=== PATIENT | male | born 1965 | race Caucasian/White ===

== ENCOUNTER 2024-04-03 10:43 | Emergency (ER) | payer OTHER ==
[2024-04-03] MEDS ORDERED: ASPIRIN 81 MG CHEWABLE TABLET ONE (10:54)
[2024-04-03] MEDS ORDERED: dilTIAZem HCL 25 MG/5 ML VIAL IV ONE ×2 (10:54→11:13)
[2024-04-03 10:56] LABS: Absolute Eosinophils 0.1 K/uL (0-0.5); Absolute Lymphocytes (CBC) 1.8 K/uL (0.7-4.9); Absolute Monocytes 0.6 K/uL (0.1-1.3); Absolute Neutrophil 3.9 K/uL (1.8-8.0); Basophils % 0.7 % (0-1.3); Hemoglobin 17.4 g/dL (13.6-17.9); Lymphocytes % 27.7 % (15.3-44.8); MCH 31.7 pg (27.0-35.0); MCHC 33.5 g/dL (32.0-36.0); MCV 94.7 fL (80-100); MPV 9.8 fL (7.6-11.3); Monocytes % 9.2 % (3.3-12.3); Neutrophils % 61.4 % (41.7-73.7); Platelets 187 thou/uL (152-406); RBC Red Blood Cell Count 5.49 M/uL (4.33-5.43); Red Cell Distribution Width 14.9 % (12.1-15.2)
[2024-04-03 10:59] LABS: PT Prothrombin Time 15.5 SECONDS (9.4-12.5); Protime INR 1.4
[2024-04-03 11:14] LABS: Albumin 4.1 g/dL (3.4-5.0); Albumin/Globulin Ratio 1.2 (1.1-1.8); Anion Gap 8.4 mEq/L (5.0-15.0); Bilirubin Direct 0.4 mg/dL (0-0.2); Bilirubin Indirect, Calculated 0.7 mg/dL (0.2-0.8); Bilirubin Total 1.1 mg/dL (0.2-1.0); Globulin 3.5 g/dL (2.3-3.5); Potassium 4.4 mEq/L (3.5-5.1); Protein, Total 7.6 g/dL (6.4-8.2); Troponin High Sensitivity 20.8 pg/mL (<58.9)
--- NOTE | 2024-04-03 11:38 | RAD REPORT ---
EXAMINATION: ONE VIEW CHEST XR CLINICAL INDICATION: Male, 59 years old.,DYSPNEA TECHNIQUE: Frontal chest projection is submitted. Examination is limited by patient positioning and t echnique. COMPARISON: No prior exam. FINDINGS: The lungs are well inflated and clear. No pneumothorax or sizable effusion. The heart is normal in s ize. Mediastinal contours are unremarkable. IMPRESSION: No acute intrathoracic abnormalities.
--- NOTE | 2024-04-03 11:56 | EDPHYS ---
Physician Documentation [facility] Name: Hector Tsai Age: 59 yrs Sex: Male : 1965 Arrival Date: 04/03/2024 Time: 10:43 Bed 2 Private MD: ED Physician Eladio Fontaine HPI: 04/03 10:49 This 59 yrs old Male presents to ER via Unassigned with complaints of ec2 tachycardia. 10:49 Patient arrives today after being seen in primary care clinic and told he was in an ec2 abnormal heart rhythm found to be tachycardic. Patient reports some trace lower extremity edema which has been ongoing for several months, some chronic shortness of breath ongoing for several months. No chest pain. Reports no history of known A-fib, no blood thinners, no significant medical problems and no daily medications.. Historical: - Allergies: 10:51 No Known Allergies; ss - Home Meds: 10:51 None [Active]; ss - PMHx: 10:51 None; ss - Immunization history:: Client reports receiving the 2nd dose of the Covid vaccine. - Infectious Disease History:: Denies. - Social history:: Smoking status: Patient denies any tobacco usage or history of. ROS: 10:49 Constitutional: as per hpi ec2 Exam: 10:49 Constitutional: GEN: NAD Head: atraumatic Eyes: EOMI Ears: External ears are ec2 normal. CV: Tachycardia, regular rhythm LUNGS: no respiratory distress ABD: non-distended SKIN: no evidence of rashes MSK: no evidence of trauma Vital Signs: 10:50 BP 144 / 107; Pulse 154; Resp 20; Pulse Ox 98% on R/A; Pain 0/10; ss 11:05 BP 108 / 86; Pulse 122; Resp 16; Pulse Ox 97% on R/A; ss 11:05 Temp 97.6(TE); ss 11:07 Weight 104.78 kg; Height 5 ft. 10 in. ; ss 11:18 BP 103 / 81; Pulse 112; ss 11:46 BP 113 / 82; Pulse 116; ss 12:02 BP 97 / 78; Pulse 116; Resp 16; Pulse Ox 95% on R/A; Pain 0/10; ss 12:05 BP 89 / 75; Resp 12; Pulse Ox 94% on R/A; ss 12:10 BP 66 / 56; Pulse 57; Resp 12; Pulse Ox 94% on R/A; Pain 4/10; ss 12:15 BP 61 / 51; Pulse 69; Resp 14; Pulse Ox 98% ; ss 12:18 BP 74 / 62; Pulse 46; Resp 16; Pulse Ox 97% on R/A; Pain 6/10; ss 12:33 BP 78 / 55; Pulse 75; Resp 14; ss 12:38 BP 80 / 68; Pulse 80; Resp 16; Pulse Ox 98% on R/A; ss 12:43 BP 96 / 75; Pulse 97; ec2 13:16 BP 116 / 96; Pulse 92; Resp 16; ss 14:30 BP 152 / 117; Pulse 142; Resp 16; Pulse Ox 98% on R/A; ss 14:31 Temp 98.2(O); ss 14:33 Pulse 120; ss 15:16 BP 131 / 98; Pulse 123; Resp 16; Temp 97.7(O); Pulse Ox 97% on R/A; Pain 0/10; ss 16:01 BP 109 / 96; Pulse 114; Resp 16; Pulse Ox 97% on R/A; ss 11:07 Body Mass Index 33.14 (104.78 kg, 177.8 cm) ss 10:50 Pain Scale: Adult ss 12:02 Pain Scale: Adult ss 12:10 Pain Scale: Adult ss 12:18 Pain Scale: Adult ss 15:16 Pain Scale: Adult ss MDM: 10:45 Medical Screening Exam initiated ec2 10:49 Data reviewed: vital signs. ED course: Patient arrives today for evaluation of an ec2 abnormal rhythm. Examination remarkable for cardiopulmonary findings as above. EKG obtained, independently reviewed and interpreted by me, shows atrial fibrillation with rapid ventricular rate of [address] segment elevations, intervals are nonactionable. Will give the patient diltiazem, obtain a cardiac workup. Differential diagnosis includes CHF, electrolyte disturbances, anemia.. 11:54 ED course: Metabolic profile, CBC, LFTs are nonactionable, troponin within normal ec2 ranges, BNP is slightly elevated at 1300. Chest x-ray shows no acute cardiopulmonary process. Patient with some improvement with initial diltiazem at 10 mg however reverted into heart rates in the 100-1 30s. Did give the patient additional 15 mg of diltiazem and starting diltiazem drip. Will admit for further cardiac evaluation. Discussed with hospitalist, pending admission.. 12:27 ED course: Patient with drop in his blood pressure with systolics in the 60s and ec2 subsequent heart rate drop in the 50s to 70s, turned off diltiazem, gave the patient a crystalloid bolus with improvement in his status.. 12:29 ED course: Repeat EKG independently reviewed and interpreted by me, shows atrial ec2 fibrillation with a rate of 78, no acute ST segment elevations, intervals are nonactionable.. 13:50 ED course: CT imaging shows concern for renal cell cancer as well as carcinoid tumor. I ec2 discussed with lab possibly obtaining 5 HIAA testing, states turnaround time would be approximately 1 week. I additionally discussed case with general surgery on-call who recommends transfer for further testing. Will attempt transfer. Patient and family updated regarding plan of care.. 14:50 ED course: I discussed the case with MD Law who declined patient for transfer. I ec2 discussed the case with wood gluer at [facility] who agrees except the patient for transfer. Family updated guarded plan of care.. 04/03 10:46 Order name: Basic Metabolic Panel; Complete Time: 11:53 ec2 04/03 10:46 Order name: CBC with Diff; Complete Time: 11:53 ec2 04/03 10:46 Order name: NT PRO-BNP; Complete Time: 11:53 ec2 04/03 10:46 Order name: PT-INR; Complete Time: 11:53 ec2 04/03 10:46 Order name: Troponin HS; Complete Time: 11:53 ec2 04/03 10:46 Order name: LFT's; Complete Time: 11:53 ec2 04/03 10:46 Order name: XRAY Chest (1 view); Complete Time: 11:53 ec2 04/03 12:42 Order name: Angio Aorta For Dissection; Complete Time: 13:19 EDMS 04/03 10:46 Order name: Cardiac monitoring; Complete Time: 10:51 ec2 04/03 10:46 Order name: EKG - Nurse/Tech; Complete Time: 10:51 ec2 04/03 10:46 Order name: IV Saline Lock; Complete Time: 10:51 ec2 04/03 10:46 Order name: Labs collected and sent; Complete Time: 10:51 ec2 04/03 10:46 Order name: O2 Per Protocol; Complete Time: 10:51 ec2 04/03 10:46 Order name: O2 Sat Monitoring; Complete Time: 10:51 ec2 Administered Medications: 14:25 Discontinued: diltiazem 5 mg/hr IV at calculated rate See Administration Instructions; ss (standard dilution 125 mg diltiazem mixed in 125 mL NS; final concentration 1mg/mL). Recommended max rate 15 mg/hr; Titrate 5 mg/hr as often as every 15 minutes to achieve goal (see titration policy); Goal parameter HR less than 100 bpm 10:00 Drug: Diltiazem IVP 10 mg IVP once; Over 2 minutes Route: IVP; Site: right antecubital; ss 10:10 Follow up: Response: No adverse reaction ss 11:00 Drug: Aspirin PO Chewable Tablet 324 mg PO once; 81 mg tablets x 4 Route: PO; ss 11:55 Drug: Diltiazem IV 5 mg/hr IV at calculated rate See Administration Instructions; ss (standard dilution 125 mg diltiazem mixed in 125 mL NS; final concentration 1mg/mL). Recommended max rate 15 mg/hr; Titrate 5 mg/hr as often as every 15 minutes to achieve goal (see titration policy); Goal parameter HR less than 100 bpm Route: IV; Rate: calculated rate; Site: right antecubital; 12:10 Follow up: IV Status: Order to discontinue infusion; Pt became hypotensive and ss bradycardic. Dr. Fontaine notified and states to DC infusion at this time 11:55 Drug: Diltiazem IVP 15 mg IVP once; Over 2 minutes Route: IVP; Site: right antecubital; ss 12:15 Follow up: Dr. Fontaine notified of patients condition. See nurses notes ss 11:59 Not Given (Other Intervention Used): [id number] mg IVP once; Over 2 minutes ss 12:15 Drug: NS 0.9% IV 1000 ml IV at 1 bolus Per protocol; to be given as a bolus over 60 ss minutes Route: IV; Rate: 1 bolus; Site: right antecubital; 13:00 Follow up: IV Status: Completed infusion; IV Intake: 1000ml 15:01 Drug: amiodarone IVPB 150 mg 100 ml IVPB once over 10 mins; (mix in D5W) Volume: 100 ss ml; Route: IVPB; Infused Over: 10 mins; Site: right antecubital; 15:13 Follow up: IV Status: Completed infusion ss 15:13 Drug: amiodarone IVPB 900 mg, D5W IV 500 ml IVPB at 1 mg/min continuous; for 6 hrs, ss then change to 0.5 mg/min Route: IVPB; Rate: 1 mg/min; Site: right antecubital; 16:22 Follow up: IV Status: Infusion continued upon transfer ss 16:03 Not Given (cancel per Dr. Mcpherson): [id number] mg 100 ml IVPB once over 10 mins; ss (mix in D5W) Disposition Summary: 04/03/24 13:38 Transfer Ordered Notes: Transfer Location: [facility] ec2 Reason: Higher level of care ec2 Condition: Stable(04/03/24 13:38) ec2 Problem: new(04/03/24 13:38) ec2 Symptoms: have improved(04/03/24 13:38) ec2 Accepting Physician: transferring doc(04/03/24 16:24) ss Diagnosis - Afib w/ rvr ec2 - Small bowel mass ec2 - Possible Carcinoid Tumor ec2 Forms: - Medication Reconciliation Form ec2 - SBAR form ec2 Critical care time excluding procedures: 11:54 Critical care time: Bedside Care: 30 minutes, Consultation: 10 minutes, Family ec2 Intervention: 5 minutes. Total time: 45 minutes Signatures: Dispatcher [employer] EDNJ Nancy Swenson RN RN ss Corral, Edwin, MD MD ec2 Corrections: (The following items were deleted from the chart) 10:46 10:46 Chest Single View+RAD.RAD.BRZ ordered. EDMS EDMS 12:42 12:35 Abdomen Pelvis W Con+CT.RAD.BRZ ordered. EDMS EDMS 13:37 11:55 Inpatient Admission ec2 ec2 13:37 11:55 Taylor Brand ec2 ec2 13:37 11:55 Intensive Care Unit ec2 ec2 13:37 11:55 Stable ec2 ec2 13:37 11:55 new ec2 ec2 13:37 11:55 have improved ec2 ec2 13:37 11:55 Standard ec2 ec2 13:37 11:55 ec2 ec2 13:37 11:55 Paroxysmal atrial fibrillation ec2 ec2 13:37 11:55 Atrial Fibrillation with Rapid Ventricular Response ec2 ec2 14:00 13:38 transferring doc ec2 ec2 16:24 14:00 transferring doc ec2 ss
--- NOTE | 2024-04-03 11:56 | ER ---
Nurse's Notes [facility] Name: Hector Tsai Age: 59 yrs Sex: Male : 1965 Arrival Date: 04/03/2024 Time: 10:43 Bed 2 Private MD: Diagnosis: Afib w/ rvr;Possible Carcinoid Tumor Presentation: 04/03 10:50 Chief complaint: Patient states: SOB since january. Had an appointment today and was ss told he may be in AFIB and to come to ER for further evaluation. Coronavirus screen: Client denies travel out of the [place] in the last 14 days. Ebola Screen: Patient denies exposure to infectious person. Patient denies travel to an Ebola-affected area in the 21 days before illness onset. Initial Sepsis Screen: Does the patient meet any 2 criteria? No. Patient's initial sepsis screen is negative. Does the patient have a suspected source of infection? No. Patient's initial sepsis screen is negative. Risk Assessment: Do you want to hurt yourself or someone else? Patient reports no desire to harm self or others. Onset of symptoms is unknown. 10:50 Method Of Arrival: Ambulatory ss 10:50 Acuity: DARIELA 2 ss Historical: - Allergies: 10:51 No Known Allergies; ss - Home Meds: 10:51 None [Active]; ss - PMHx: 10:51 None; ss - Immunization history:: Client reports receiving the 2nd dose of the Covid vaccine. - Infectious Disease History:: Denies. - Social history:: Smoking status: Patient denies any tobacco usage or history of. Screenin:50 Abuse screen: Denies threats or abuse. Denies injuries from another. Nutritional ss screening: No deficits noted. Tuberculosis screening: Never had TB. Assessment: 10:50 General: Appears in no apparent distress. comfortable, Behavior is calm, cooperative, ss Denies fever, feeling ill, fatigue, chills. Pain: Denies pain. Neuro: Level of Consciousness is awake, alert, obeys commands, Oriented to person, place, time, situation, Speech is normal. Respiratory: Reports shortness of breath since "mid January" Airway is patent Respiratory effort is even, unlabored, Respiratory pattern is regular, symmetrical. GI: Patient currently denies nausea, vomiting. : No signs and/or symptoms were reported regarding the genitourinary system. Derm: Skin is pink, warm \\T\\ dry. normal. 11:25 Reassessment: Patient appears in no apparent distress at this time. Patient and/or ss family updated on plan of care and expected duration. Pain level reassessed. Patient is alert, oriented x 3, equal unlabored respirations, skin warm/dry/pink. awaiting for diltiazem drip to arrive from pharmacy. Will continue to watch BP closely. Dr. Fontaine notified of BP 103/81 and states to hold Diltiazem 25 mg IVP now, and to administer 15 mg bolus and start drip at the same time. Family and pt notified of plan of care and verbalizes understanding. Patient denies pain at this time. 12:10 Reassessment: PT states sudden onset of not feeling well/ fatigue. Dr. Fontaine is at bedside to assess pt. Diltiazem drip stopped. Reassessment: and daughter at bedside. Pain: Complains of pain in abdomen. Neuro: Respiratory: Airway is patent Respiratory effort is even, unlabored. EENT: Oral mucosa is dry. Derm: Skin is pale. 12:50 Reassessment: Pt to CT, on monitor, accompanied by TRUDY Elias. jl 13:03 Reassessment: PT back from CT at this time. 14:29 Reassessment: Patient appears in no apparent distress at this time. Patient and/or ss family updated on plan of care and expected duration. Pain level reassessed. PT and family update on plan of care and plan to transfer. Dr. Fontaine notified of elevated pulse and BP and ordered Amiodarone. Order faxed to pharmacy. Awaiting meds to be delivered. Patient denies pain at this time. Patient states feeling better. Patient states symptoms have improved. 15:15 Reassessment: Patient appears in no apparent distress at this time. Patient and/or ss family updated on plan of care and expected duration. Pain level reassessed. Report given to TRUDY Hernández at [facility] ICU Patient denies pain at this time. Vital Signs: 10:50 BP 144 / 107; Pulse 154; Resp 20; Pulse Ox 98% on R/A; Pain 0/10; ss 11:05 BP 108 / 86; Pulse 122; Resp 16; Pulse Ox 97% on R/A; ss 11:05 Temp 97.6(TE); ss 11:07 Weight 104.78 kg; Height 5 ft. 10 in. ; ss 11:18 BP 103 / 81; Pulse 112; ss 11:46 BP 113 / 82; Pulse 116; ss 12:02 BP 97 / 78; Pulse 116; Resp 16; Pulse Ox 95% on R/A; Pain 0/10; ss 12:05 BP 89 / 75; Resp 12; Pulse Ox 94% on R/A; ss 12:10 BP 66 / 56; Pulse 57; Resp 12; Pulse Ox 94% on R/A; Pain 4/10; ss 12:15 BP 61 / 51; Pulse 69; Resp 14; Pulse Ox 98% ; ss 12:18 BP 74 / 62; Pulse 46; Resp 16; Pulse Ox 97% on R/A; Pain 6/10; ss 12:33 BP 78 / 55; Pulse 75; Resp 14; ss 12:38 BP 80 / 68; Pulse 80; Resp 16; Pulse Ox 98% on R/A; ss 12:43 BP 96 / 75; Pulse 97; ec2 13:16 BP 116 / 96; Pulse 92; Resp 16; ss 14:30 BP 152 / 117; Pulse 142; Resp 16; Pulse Ox 98% on R/A; ss 14:31 Temp 98.2(O); ss 14:33 Pulse 120; ss 15:16 BP 131 / 98; Pulse 123; Resp 16; Temp 97.7(O); Pulse Ox 97% on R/A; Pain 0/10; ss 16:01 BP 109 / 96; Pulse 114; Resp 16; Pulse Ox 97% on R/A; ss 11:07 Body Mass Index 33.14 (104.78 kg, 177.8 cm) ss 10:50 Pain Scale: Adult ss 12:02 Pain Scale: Adult ss 12:10 Pain Scale: Adult ss 12:18 Pain Scale: Adult ss 15:16 Pain Scale: Adult ss ED Course: 10:45 Patient arrived in ED. eb 10:45 Eladio Fontaine MD is Attending Physician. ec2 10:50 Triage completed. ss 10:51 Nancy Swenson RN is Primary Nurse. ss 10:51 Arm band placed on right wrist. ss 10:51 Inserted saline lock: 20 gauge in right antecubital area, using aseptic technique. ss Blood collected. Flushed with 10 mL NS. 10:52 Basic Metabolic Panel Sent. ss 10:52 CBC with Diff Sent. ss 10:52 NT PRO-BNP Sent. ss 10:52 PT-INR Sent. ss 10:52 Troponin HS Sent. ss 10:52 LFT's Sent. ss 11:37 XRAY Chest (1 view) In Process Unspecified. EDMS 11:55 Taylor Brand MD is Hospitalizing Provider. ec2 12:10 Patient has correct armband on for positive identification. Bed in low position. Call ss light in reach. Side rails up X2. 13:04 Angio Aorta For Dissection In Process Unspecified. EDMS 13:58 initiated a transfer with Frantz from the [facility] transfer center. eb 14:13 connected the emergency room doctor armor reconnaissance vehicle crewman for [facility] with Dr. Fontaine for patient eb transfer consultation. 14:15 No provider procedures requiring assistance completed. ss 14:22 initiated a transfer with Leah from the [facility] Transfer Center. eb 14:33 connected the medieval english literature professor armor reconnaissance vehicle crewman for [facility] with Dr. Fontaine for patient eb transfer consultation. 14:42 administrative approval give n by Leah Woods/ patient has been accepted to [facility] room 203/ Dr. Shyanne Chan has accepted the patient in transfer/ report to be called to [phone]. 16:23 Patient transferred, IV remains in place. ss Administered Medications: 14:25 Discontinued: diltiazem 5 mg/hr IV at calculated rate See Administration Instructions; ss (standard dilution 125 mg diltiazem mixed in 125 mL NS; final concentration 1mg/mL). Recommended max rate 15 mg/hr; Titrate 5 mg/hr as often as every 15 minutes to achieve goal (see titration policy); Goal parameter HR less than 100 bpm 10:00 Drug: Diltiazem IVP 10 mg IVP once; Over 2 minutes Route: IVP; Site: right antecubital; ss 10:10 Follow up: Response: No adverse reaction ss 11:00 Drug: Aspirin PO Chewable Tablet 324 mg PO once; 81 mg tablets x 4 Route: PO; ss 11:55 Drug: Diltiazem IV 5 mg/hr IV at calculated rate See Administration Instructions; ss (standard dilution 125 mg diltiazem mixed in 125 mL NS; final concentration 1mg/mL). Recommended max rate 15 mg/hr; Titrate 5 mg/hr as often as every 15 minutes to achieve goal (see titration policy); Goal parameter HR less than 100 bpm Route: IV; Rate: calculated rate; Site: right antecubital; 12:10 Follow up: IV Status: Order to discontinue infusion; Pt became hypotensive and ss bradycardic. Dr. Fontaine notified and states to DC infusion at this time 11:55 Drug: Diltiazem IVP 15 mg IVP once; Over 2 minutes Route: IVP; Site: right antecubital; ss 12:15 Follow up: Dr. Fontaine notified of patients condition. See nurses notes ss 11:59 Not Given (Other Intervention Used): [id number] mg IVP once; Over 2 minutes ss 12:15 Drug: NS 0.9% IV 1000 ml IV at 1 bolus Per protocol; to be given as a bolus over 60 ss minutes Route: IV; Rate: 1 bolus; Site: right antecubital; 13:00 Follow up: IV Status: Completed infusion; IV Intake: 1000ml ss 15:01 Drug: amiodarone IVPB 150 mg 100 ml IVPB once over 10 mins; (mix in D5W) Volume: 100 ss ml; Route: IVPB; Infused Over: 10 mins; Site: right antecubital; 15:13 Follow up: IV Status: Completed infusion ss 15:13 Drug: amiodarone IVPB 900 mg, D5W IV 500 ml IVPB at 1 mg/min continuous; for 6 hrs, ss then change to 0.5 mg/min Route: IVPB; Rate: 1 mg/min; Site: right antecubital; 16:22 Follow up: IV Status: Infusion continued upon transfer ss 16:03 Not Given (cancel per Dr. Mcpherson): [id number] mg 100 ml IVPB once over 10 mins; ss (mix in D5W) Medication: 10:50 VIS not applicable for this client. ss Intake: 13:00 IV: 1000ml; Total: 1000ml. ss Outcome: 11:55 Decision to Hospitalize by Provider. ec2 13:38 ER care complete, transfer ordered by MD. ec2 16:23 Transferred by ground EMS Transfer form completed. X-rays sent w/ patient. Note: [facility] 16:23 Condition: stable 16:23 Instructed on the need for transfer, 16:24 Patient left the ED. Signatures: Dispatcher [employer] Nancy Darby RN RN ss Curt Malik RN RN jl7 iKnsey Ramírez Edwin, MD MD ec2 Corrections: (The following items were deleted from the chart) 14:13 14:11 initiated a transfer with Frantz from the [facility] transfer center escobar cody
[2024-04-03] MEDS ORDERED: DILTIAZEM INJ 125 MG/25 ML 125 MG in NA CHLORIDE 0.9% 100 ML IV SCH (12:00)
[2024-04-03] MEDS ORDERED: NA CHLORIDE 0.9% 1,000 ML ONE (12:15)
--- NOTE | 2024-04-03 13:17 | RAD REPORT ---
EXAM: Angio Aorta For Dissection CLINICAL INDICATION: Male, 59 years ABD PAIN TECHNIQUE: CTA of the aorta was obtained including the chest, abdomen and pelvis, with IV contrast, a s per department protocol. Axial, sagittal and coronal reconstructions were obtained. Post-processing was applied at the acquisition scanner with concurrent physician supervision which in cludes 3D reconstructions, MIPs, volume rendered images and/or shaded surface rendering. One or more of the following dose reduction techniques were used: Automated exposure control, adjustment of the mA and/or kV according to the patient size, and/or iterative reconstruction. Unless otherwise specified, incidental findings do not require dedicated imaging follow-up. [id number]. COMPARISON: No prior exam. FINDINGS: Chest: LOWER NECK/CHEST WALL: Visualized thyroid gland and soft tissues are normal. LUNGS AND AIRWAYS: Airways are clear. No evidence of airspace or interstitial process. No nodules. PLEURA: No pleural effusion. No pneumothorax. Hemidiaphragms are normally positioned. MEDIASTINUM AND LYMPH NODES: No mediastinal mass or fluid collection. Normal size mediastinal, hilar, and axillary lymph nodes. THORACIC AORTA: Normal caliber and configuration. PULMONARY ARTERIES: Normal caliber. HEART: Coronary artery calcifications. Coronary calcifications which are mild. Small pericardial effu maida. Abdomen/Pelvis LIVER: Low-density lesion in the right hepatic lobe measuring 14 mm is likely benign. Other smaller l ow-density liver lesions noted. GALLBLADDER/BILE DUCTS: No biliary ductal dilatation. PANCREAS: No mass, ductal dilation, or apolinar-pancreatic fluid. SPLEEN: Normal size. No focal lesion. ADRENALS: Normal; no mass. KIDNEYS AND URETERS: Solid mass in the right upper pole kidney measuring 5.8 cm presumably representi ng neoplasm. Other benign-appearing renal lesions noted. GASTROINTESTINAL TRACT: Stomach is non-dilated. Small bowel wall thickening as noted below. Diverticu losis without diverticulitis.. PERITONEUM: No free fluid. LYMPH NODES: Regular lymph node/nodule in the small bowel mesentery which is seen on image 145, serie s 401 and which measures 2.4 x 1.5 cm. The adjacent small bowel is thickened with mesenteric edema. This likely results in some tethering. ABDOMINAL AORTA AND OTHER VESSELS: Normal caliber aorta and IVC. URINARY BLADDER: Normal contour. REPRODUCTIVE ORGANS: No pathologic process. MUSCULOSKELETAL: No acute or suspicious osseous abnormality. ADDITIONAL FINDINGS: None IMPRESSION: No aortic aneurysm or dissection. Right upper pole renal mass likely reflecting a renal cell carcinoma. Recommend urologic referral. Angulated small bowel in the central abdomen with mesenteric edema and wall thickening as well as a r egular soft tissue implant. This could reflect a carcinoid tumor given the tethering of the small bowel. No bowel obstruction this time. Adjacent small bowel wall thickening could be reactive versus an enteritis. Regarding the mesenteric lesion, surgical consultation is recommended.
[2024-04-03] MEDS ORDERED: AMIODARONE HCL 150 MG in D5W 100 ML IV STA ×2 (14:27→15:41)
[2024-04-03] MEDS ORDERED: AMIODARONE HCL 900 MG in Dextrose 5%-Water 482 ML IV SCH ×2 (15:00→16:00)
[2024-04-03 16:48] VITALS: TEMP 97.7; O2SAT 97
[2024-04-03 16:49] VITALS: BP 109/96
--- NOTE | 2024-04-06 12:20 | EKG ---
Test Date: 2024-04-03 Test Time: 10:47:29 Building Services Engineer: RADHA MEASUREMENT RESULTS: Intervals: Rate: 157 GA: QRSD: 74 QT: 278 QTc: 449 [place]: P: GA: QRS: 98 T: 52 INTERPRETIVE STATEMENTS: Atrial fibrillation with rapid ventricular response Rightward axis Abnormal ECG No previous ECG available for comparison Electronically Signed On 04-06-24 12:16:34 MEDICAL RECORD LIBRARIAN by Saud Mcarthur
== END 2024-04-03 16:24 | disposition short-term general hospital (02) ==
LOC: ER 10:43
DX: I48.91 Unspecified atrial fibrillation (principal); K63.89 Other specified diseases of intestine
CPT/HCPCS: 96365; 96361; 85025; 80048; 36415; 85610; 80076; 84484; 83880; 71275; 74175; 71045; 96375; 99285; Q9967; J0282 ×3; J7060; J7030; 93005